=== PATIENT | male | born 1960 | race Caucasian/White ===

== ENCOUNTER 2019-01-25 13:01 | Observation (INO) | payer BC, SELFPAY ==
[2019-01-25] VITALS (7 sets, daily range): BP systolic 106–167; BP diastolic 64–90; PULSE 70–86; RESP 13–18; TEMP 36.4–36.7; O2SAT 94–98; BMI 27.4; BMI 27.8; BMI 27.9
--- NOTE | 2019-01-25 13:25 | EKG12_ITS ---
Test Reason : CP Blood Pressure : / mmHG Vent. Rate : 071 BPM Atrial Rate : 071 BPM P-R Int : 166 ms QRS Dur : 098 ms QT Int : 398 ms P-R-T Axes : 071 069 061 degrees QTc Int : 432 ms Normal sinus rhythm Normal ECG Confirmed by VIKY CANNON, KENNA ([id number]), editor map GAL ROGERS ([id number]) on 01/31/2019 1:09:40 PM Referred By: MARY ANN Confirmed By:MICAH SALMON MD
--- NOTE | 2019-01-25 13:25 | RAD_ITS ---
STUDY: X-RAY CHEST REASON FOR EXAM: Male, 58 years old. One week history of chest tightness. TECHNIQUE: Single AP portable view of the chest. COMPARISON: Comparison is made with prior study September 26, 2015. FINDINGS: EKG electrodes are seen. Hyperinflation. Scattered calcified granulomas. There is no demonstrated pleural abnormality. Normal size heart. Normal mediastinum and imelda. Normal visualized pulmonary arteries. There is atherosclerotic tortuosity of the aortic arch and descending thoracic aorta. There are diffuse degenerative changes of the visualized thoracic spine. Normal visualized ribs, clavicles, and shoulders. There is no demonstrated abnormality of the visualized soft tissue structures of the upper abdomen. RAD/Chest 1 View (Portable) IMPRESSION: Hyperinflation. No acute abnormality is seen. Electronically Signed: Lino Mcgee, at 14:12 EST , Service support ,
--- NOTE | 2019-01-25 13:27 | ED.DCSUM_ITS ---
History of Present Illness Chief Complaint: Chest Pain Informant: Patient, Significant Other Onset: Days Current Severity: Mild Maximum Severity: Moderate Narrative: Patient presents with intermittent chest tightness for the past 2 days. He states he will get a tight sensation around his mid chest. He was initially getting some numbness in his left arm also. Pain is not brought on by exertion. He does not feels if he is going to pass out. He does not have palpitations. He denies personal history of cardiac disease but does have significant family history. Patient states yesterday he was more fatigued than normal and slept most of the day. - Past Medical History (1) Hypertension Status: Chronic (2) High cholesterol Status: Acute (3) GERD (gastroesophageal reflux disease) Status: Acute (4) Anxiety Status: Acute Past Medical History - Allergies and Home Meds Allergies/Adverse Reactions: Allergies No Known Allergies Allergy (Verified 01/25/19 13:01) Primary Care Physician: Tarik Reyes [Other] Prior records reviewed: Yes Lives: Spouse/ Significant Other Smoking Status: Current every day smoker Review of Systems General: Denies: Chills, Fever Eyes: Denies: Visual changes - bilaterally ENT: Denies: Bilateral ear pain Cardiovascular: Reports: Chest pain. Denies: Palpitations Respiratory: Reports: Dyspnea. Denies: Cough Gastrointestinal: Denies: Abdominal pain, Nausea, Vomiting, Diarrhea Musculoskeletal: Denies: Swelling, Extremity Pain Skin: Denies: Rash Neurological: Reports: Weakness - Generalized weakness and fatigue Hematologic: Denies: Easy bruising Allergy: Denies: Uticaria Physical Exam Vital Signs/Narrative: Vital Signs Temp Pulse Resp BP Pulse Ox 01/25/19 13:02 97.5 F L 73 18 160/90 H 98 Inital Vital Signs reviewed: Yes General: Well nourished, Well developed Head: Normocephalic ENT: Moist mucous membranes Neck: Supple, Nontender Cardiovascular: Regular rate, Regular rhythm Respiratory: No distress, CTA bilaterally, Chest nontender Abdomen: Soft, Nontender Back: Nontender Extremities: Nontender, No edema Skin: Normal color, No rash Neurological: Alert, Oriented x3 Psychological: Normal affect Diagnostic/Tx/Re-eval Impressions Chest X-Ray 01/25/19 13:25 IMPRESSION: Hyperinflation. No acute abnormality is seen. Electronically Signed: Lino Mcgee, at 14:12 EST , Service support , 01/25/19 13:25 Chest 1 View (Portable) [RAD] Stat Laboratory Results 01/25/19 01/25/19 01/25/19 13:35 13:35 13:35 WBC 13.2 H RBC 5.57 Hgb 16.6 H Hct 49.7 MCV 89.2 MCH 29.8 MCHC 33.4 RDW Std Deviation 42.3 RDW Coeff of Quan 13.0 Plt Count 316 MPV 8.8 Immature Gran % (Auto) 0.400 Neut % (Auto) 64.6 Lymph % (Auto) 24.0 [place] % (Auto) 7.8 Eos % (Auto) 2.5 Baso % (Auto) 0.7 Absolute Neuts (auto) 8.5 H Absolute Lymphs (auto) 3.16 Nucleated RBC % 0 D-Dimer Quant (PE/DVT) 0.41 Sodium 135 L Potassium 3.6 Chloride 101 Carbon Dioxide 27.0 Anion Gap 7 BUN 13 Creatinine 0.82 Estim Creat Clear Calc 96.16 Est GFR (MDRD) Af Amer 124 Est GFR (MDRD) Non-Af 102 BUN/Creatinine Ratio 15.8 Glucose 92 Calcium 9.7 Troponin I < 0.015 TSH 0.51 - EKG Initial EKG Interpretation: Sinus Rhythm - Sinus at 71 with no acute ischemia. - Medical Decision Making Patient had already taken 2 baby aspirin prior to arrival and was given 2 additional baby aspirin here. On repeat evaluation is resting comfortably. Test results are discussed with patient and at bedside. He is agreed to observation overnight for cycling of cardiac enzymes and potential stress test. I will speak with the hospitalist. ED Disposition - Plan for ED Patient: Disposition: Acute Care Hospital [facility] Diagnosis: Chest pain Referrals: Tarik Reyes [Other]
[2019-01-25 13:43] LABS: Absolute Lymphocyte Count 3.16 X10^3/uL (0.83-4.51); Absolute Neutrophil Count 8.5 X10^3/uL (2.0-7.7); Basophil# 0.09 X10^3/uL; Basophil% 0.7 % (0-1); Eosinophil# 0.33 X10^3/uL; Eosinophils% 2.5 % (0-5); Hematocrit 49.7 % (40-54); Hemoglobin 16.6 g/dL (13.0-16.5); Lymphocyte # 3.16 X10^3/ul (4.0); Mean Corp Hgb Conc 33.4 g/dL (32-36); Mean Corpuscular Hgb 29.8 pg (27.0-32.0); Mean Corpuscular Volume 89.2 fL (80-94); Mean Platelet Vol. 8.8 fl (6.2-12.0); Monocyte# 1.03 X10^3/uL; Monocyte% 7.8 % (0-10); NRBC Flagged by Analyzer 0 % (0-5); Neutrophil # 8.52 X10^3/uL (2.7-7.7); Neutrophil % 64.6 % (47-70); Platelet Count 316 K/mm3 (150-450); RBC Distribution Width SD 42.3 fl (35.1-43.9); Red Blood Count 5.57 M/mm3 (4.6-6.2); White Blood Count 13.2 K/mm3 (4.4-11.0)
[2019-01-25 14:06] LABS: Anion Gap 7 (5-15); BUN 13 mg/dL (7-18); BUN/Creat Ratio 15.8 RATIO (10-20); Calcium,Total 9.7 mg/dL (8.5-10.1); Chloride 101 mmol/L (98-107); Creatinine, Serum 0.82 mg/dL (0.70-1.30); EST Glomerular Filtration Rate 102 mL/min (>60); Est Glom Filt Rate - Afr Amer 124 mL/min (>60); Estimated Creatinine Clearance 96.16 ml/min; Glucose 92 mg/dL (74-106); Potassium 3.6 mmol/L (3.5-5.1); Sodium Level 135 mmol/L (136-145); Thyroid Stim Hormone (TSH) 0.51 uIU/mL (0.358-3.74)
[2019-01-25 14:07] LABS: D-Dimer Quantitative (DVT/PE) 0.41 FEU/ug/m (0.27-0.49)
[2019-01-25] MEDS: Aspirin 81 MG TAB.CHEW 162 MG PO (14:07)
[2019-01-25] MEDS: 0.9% Normal Saline 1,000 ML 150 ML IV (14:10)
--- NOTE | 2019-01-25 15:17 | NURSING ---
PCU OBS ANDREA VALDEZ
--- NOTE | 2019-01-25 16:32 | EKG12_ITS ---
Test Reason : CP Blood Pressure : / mmHG Vent. Rate : 067 BPM Atrial Rate : 067 BPM P-R Int : 174 ms QRS Dur : 098 ms QT Int : 410 ms P-R-T Axes : 084 080 070 degrees QTc Int : 433 ms Sinus rhythm with occasional Premature ventricular complexes Possible Left atrial enlargement Borderline ECG When compared with ECG of 25-JAN-2019 13:05, MANUAL COMPARISON REQUIRED, DATA IS UNCONFIRMED Confirmed by VIKY CANNON, KENNA ([id number]), film and video editor GAL ROGERS ([id number]) on 01/31/2019 1:46:21 PM Referred By: Confirmed By:MICAH SALMON MD
--- NOTE | 2019-01-25 18:05 | PCM.HP.STD ---
Problem List (1) Chest pain Status: Acute Qualifiers: Chest pain type: precordial pain Qualified Code(s): R07.2 - Precordial pain History of Present Illness Date of Admission: 01/25/19 Chief Complaint: Precordial chest pain The patient is a 58 year old M who was seen in the emergency room at [facility] with a chief complaint of chest pain which he described as a tightness across his chest, radiating into his back, and causing left arm numbness at times over the past week intermittently. Patient also states that he was sweaty and got nauseated during one episode of the discomfort. Eyes anything bringing on the discomfort-he states it can happen at rest or during activity. Nothing in particular makes it go away, patient states that last for several minutes. Work-up in the emergency room included an EKG which showed normal sinus rhythm without evidence of ischemic changes, white blood cell count was elevated at 13.2, hemoglobin was 16.6. Patient's troponin was normal, patient's chest x-ray showed hyperinflation and no acute abnormality. Patient will be placed in observation status on PCU, cardiac enzymes will be cycled, if these remain negative, patient will undergo a resting nuclear stress test tomorrow-patient states he is unable to walk on a treadmill for more than a few minutes-patient is a heavy smoker and I do not believe he would be able to perform an exercise stress test. Past Medical History Past Medical History (Chronic Problems): Chronic Problems Hypertension (Chronic) High cholesterol (Chronic) GERD (gastroesophageal reflux disease) (Chronic) Allergies No Known Allergies Allergy (Verified 01/25/19 13:01) Home Medications: Ambulatory Orders Medication Instructions Recorded Lisinopril/Hydrochlorothiazide 1 each PO DAILY 09/26/15 [Zestoretic 20-25 mg Tablet] Omeprazole [Prilosec] 20 mg PO DAILY 09/26/15 Amlodipine [Norvasc] 5 mg PO DAILY 01/25/19 Aspirin E.C. [Ecotrin] 81 mg PO DAILY@0800 01/25/19 Lisinopril [Zestril] 20 mg PO QHS 01/25/19 Pravastatin Sodium 80 mg PO QHS 01/25/19 Surgical History: no surgical history Psychiatric History: No pertinent psych hx Lives: Spouse/ Significant Other Smoking Status: Current every day smoker Tobacco Use: Cigarettes Alcohol: Occasional - Daily alcohol usage Drugs: None - *Family History Maternal History Items: Heart Disease Paternal History Items: Heart Disease - At age 46 Sibling History Items: Heart Disease - Brother has coronary artery disease Review of Systems Constitutional: Denies: Anorexia, Chills, Fever, Night Sweats, Malaise, Weakness, Weight Change, Fatigue Eyes: Denies: Cataracts, Conjunctivae Inflammation, Double vision, Drainage HEENT: Denies: Difficulty Swallowing, Dysphasia, Ear Pain, Eye Pain, Hearing Changes, Nasal bleeding, Nasal Congestion, Post Nasal Drip Cardiovascular: Reports: Chest Pain, Chest Tightness. Denies: Claudication, Chest Pressure, Edema, Heaviness, Light Headedness, Orthopnea, Palpitations, Paroxysmal Noc. Dyspnea, Syncope Respiratory: Denies: Cough, Hemoptysis, Pleuritic Pain, Shortness of Breath, Shortness of breath at rest, Shortness of breath upon exertion, Sputum production Gastrointestinal: Reports: Nausea - At times with chest discomfort. Denies: Abdominal Pain, Constipation, Diarrhea, Hematemesis, Hematochezia, Melena, Vomiting Genitourinary: Denies: Dysuria, Frequency, Hematuria, Hesitancy, Nocturia, Retention, Urgency Musculoskeletal: Denies: Joint Pain, Joint stiffness, Joint swelling Skin: Denies: Dryness, Pruritis, Rash Neurological: Denies: Blurred vision, Double vision, Slurred speech, Difficulty swallowing, Focal weakness, Headaches, Incoordination, Numbness, Tingling Psychiatric: Denies: Anxiety, Depression, Homicidal Ideations, Suicidal Ideations Endocrine: Denies: Change in Body Habitus, Heat/ Cold Intolerance, Polydipsia, Polyuria Hematologic/ Lymphatic: Denies: Adenopathy, Anemia, Easy Bruising, Easy Bleeding, Petechiae, Purpura VTE Information - Inpt Only VTE Present on Admission: No VTE Mechan Device Prophylaxis: None VTE Pharm Prophylaxis ordered?: Yes Patient Problems: Active and Suspected Problems Chest pain (Acute) - Physical Exam Vitals/I&O's: Vital Signs Temp Pulse Resp BP Pulse Ox 97.9 F 71 16 167/86 H 98 01/25/19 16:05 01/25/19 16:10 01/25/19 16:05 01/25/19 16:05 01/25/19 16:05 Oxygen Delivery Method Room Air Weight: 83.5 kg Body Mass Index (BMI) 27.8 Intake and Output for Last 24 Hours 01/23/19 01/24/19 01/25/19 23:59 23:59 23:59 Intake Total 1350 / 1350 Balance 1350 / 1350 General: Alert, Oriented x3, Cooperative, No apparent distress, Well developed, Well nourished HEENT: Atraumatic, PERRLA, EOMI, Normocephalic Oral: Moist Mucosa Neck: Supple, No JVD, Negative Carotid Bruits, Trachea Midline, Thyroid Normal Size and Texture Lungs: Clear to auscultation, Normal air movement, No rhonchi, No wheeze, No rales Cardiovascular: Regular rate, Regular Rhythm, Normal S1, Normal S2, No murmurs Abdomen: Bowel Sounds Present, Soft, Non Tender, Non-Distended Extremities: No clubbing, No cyanosis, No edema, Capillary Refill Less than 3 Seconds Skin: No rashes, No breakdown Musculoskeletal: No Tenderness to Palpation of Joints or Extremities, No Muscle Wasting Neurological: Cranial nerves II-XII grossly intact, Neuro grossly intact, Sensory exam intact to light touch and pain, Coordination normal Psych/Mental Status: Normal Affect, Appropriate, Alert and oriented to time, place, person, mood and affect Laboratory Results 01/25/19 13:35: WBC 13.2 H, RBC 5.57, Hgb 16.6 H, Hct 49.7, MCV 89.2, MCH 29.8, MCHC 33.4, RDW Std Deviation 42.3, RDW Coeff of Quan 13.0, Plt Count 316, MPV 8.8, Immature Gran % (Auto) 0.400, Neut % (Auto) 64.6, Lymph % (Auto) 24.0, [place] % (Auto) 7.8, Eos % (Auto) 2.5, Baso % (Auto) 0.7, Absolute Neuts (auto) 8.5 H, Absolute Lymphs (auto) 3.16, Nucleated RBC % 0 01/25/19 13:35: Sodium 135 L, Potassium 3.6, Chloride 101, Carbon Dioxide 27.0, Anion Gap 7, BUN 13, Creatinine 0.82, Estim Creat Clear Calc 96.16, Est GFR (MDRD) Af Amer 124, Est GFR (MDRD) Non-Af 102, BUN/Creatinine Ratio 15.8, Glucose 92, Calcium 9.7, Troponin I < 0.015, TSH 0.51 01/25/19 13:35: D-Dimer Quant (PE/DVT) 0.41 01/25/19 17:50: Troponin I Pending Current Medications Amlodipine Besylate (Norvasc) 5 mg PO DAILY [facility] Aspirin (Ecotrin) 81 mg PO DAILY@0800 [facility] Heparin Sodium (Porcine) (Heparin Na) 5,000 unit SC Q12 [facility] Hydrochlorothiazide (Hctz) 25 mg PO DAILY [facility] Lisinopril (Zestril) 20 mg PO QHS [facility] Lisinopril (Zestril) 20 mg PO DAILY [facility] Pantoprazole Sodium (Protonix) 20 mg PO DAILY [facility] Pravastatin Sodium (Pravachol) 80 mg PO QHS [facility] Sodium Chloride () 10 - 40 ml IV UD PRN PRN Reason: SALINE FLUSH Assessment/Plan All Active Problems Chest pain (Acute) #1 chest pain-described as tightness-etiology unclear, patient is at high risk for coronary artery disease-he is a heavy smoker and has hypercholesterolemia, strong family history of coronary artery disease, and has a history of hypertension. Patient will be placed in observation status on PCU, cardiac enzymes will be cycled, if his cardiac enzymes remain normal he will undergo a resting nuclear pharmacologic stress test tomorrow #2 hypertension-patient will remain on his present medications #3 GERD-patient will remain on a PPI #4 hyperlipidemia Code Visit OBSV E&M: 96984 Initial observation care L3
[2019-01-25] MEDS: 0.9% Saline Lock 10 ML Syringe IV (21:19)
[2019-01-25] MEDS: Pravastatin 80 MG Tablet PO (21:19)
[2019-01-26] VITALS (7 sets, daily range): BP systolic 122–141; BP diastolic 80–85; PULSE 68–78; RESP 16–18; TEMP 36.4–36.7; O2SAT 96–98
--- NOTE | 2019-01-26 05:55 | EKG12_ITS ---
Test Reason : AM EKG Blood Pressure : / mmHG Vent. Rate : 079 BPM Atrial Rate : 079 BPM P-R Int : 158 ms QRS Dur : 098 ms QT Int : 410 ms P-R-T Axes : 079 075 067 degrees QTc Int : 470 ms Normal sinus rhythm Normal ECG When compared with ECG of 25-JAN-2019 16:17, MANUAL COMPARISON REQUIRED, DATA IS UNCONFIRMED Confirmed by VIKY CANNON, KENNA ([id number]), video effects editor GAL ROGERS ([id number]) on 01/31/2019 1:45:45 PM Referred By: ANDREA Confirmed By:MICAH SALMON MD
[2019-01-26] MEDS: Aspirin E.C. 81 MG Tablet PO (06:12)
[2019-01-26] MEDS: hydroCHLOROthiazide 25 MG Tablet PO (11:24)
[2019-01-26] MEDS: amLODIPine 5 MG Tablet PO (11:24)
[2019-01-26] MEDS: Pantoprazole Sodium 20 MG Tablet PO (11:24)
[2019-01-26] MEDS: Lisinopril 20 MG Tablet PO (11:25)
--- NOTE | 2019-01-26 12:09 | STRESSREP ---
Stress Test Report Date: 01/26/2019 Procedure: Pharmacologic stress nuclear imaging study Indications: Chest pain Consent: Per the patient Procedure: The patient underwent pharmacologic (Regadenoson) evaluation with a peak heart rate of 104 beats per minute (63 %predicted maximal heart rate) and a peak blood pressure of 160/78 mmHg. The baseline ECG demonstrated normal sinus rhythm, possible old anteroseptal ID. EKG during lexiscan infusion revealed no significant ischemic changes. EKG post infusion revealed no significant ischemic changes [There were no significant cardiac dysrhythmias pretest, during pharmacologic infusion, or recovery]. [There was no complaint of chest discomfort during pharmacologic infusion or recovery]. The examination was discontinued secondary to completion of protocol. Impression: 1. Lexiscan stress test test is negative for Lexiscan infusion induced EKG changes of ischemia. 2. Lexiscan stress test test is negative for Lexiscan infusion induced chest pain. 3. Results of the nuclear portion of the test is as below Myocardial perfusion imaging study: Technique: The patient was injected with 12 millicuries of technetium 99m Cardiolite and subsequently rest SPECT Cardiolite nuclear imaging was obtained in the horizontal long, vertical long, and short axis views. The patient underwent pharmacologic (Regadenoson) evaluation. Please see above for details. The patient was injected with 36 millicuries of technetium 99m Cardiolite and subsequently stress SPECT Cardiolite nuclear imaging was obtained in the horizontal long, vertical long, and short axis views. A gated Cardiolite study at peak stress was obtained. Interpretation: Rest and stress SPECT Cardiolite nuclear imaging status post realignment, normalization, and attenuation correction demonstrate mildly decreased radioisotope uptake in the inferior wall prior to attenuation correction. After attenuation correction there is normal myocardial radioisotope uptake. These findings are suggestive of diaphragmatic attenuation artifact. There is no evidence of significant ischemia or infarction. Gated images reveal no significant regional wall motion abnormalities. The reported LVEF is 60 %. Impression: 1. There is no evidence of significant ischemia or infarction. 2. Estimated ejection fraction is 60%. This note was generated with [employer] software. It may contain incorrect words, spelling, and punctuation that were not noted in checking the note before signing.
--- NOTE | 2019-01-26 12:22 | DCINST_ITS ---
- Discharge Diagnoses Current Active Problems: Current Active and Chronic Problems Hypertension (Chronic) High cholesterol (Chronic) GERD (gastroesophageal reflux disease) (Chronic) Chest pain (Acute) Reason(s) for Visit for Discharge Instructions: Chest pain You will use the following diet at home:: Cardiac Your food should be the consistency of: Regular Your liquids should be the consistency of: Regular/Thin Discharge Activity: Return to Normal Activity Additional Instructions: Continue to take all your medications. Follow up with your primary care doctor within 2 weeks. Allergies/Adverse Reactions: Allergies No Known Allergies Allergy (Verified 01/25/19 13:01) Medications to take at Discharge Lisinopril/Hydrochlorothiazide [Zestoretic 20-25 mg Tablet] 1 each PO DAILY 09/26/15 Omeprazole [Prilosec] 20 mg PO DAILY 09/26/15 Amlodipine [Norvasc] 5 mg PO DAILY 01/25/19 Aspirin E.C. [Ecotrin] 81 mg PO DAILY@0800 01/25/19 Lisinopril [Zestril] 20 mg PO QHS 01/25/19 Pravastatin Sodium 80 mg PO QHS 01/25/19 Primary Care Physician: Tarik Reyes [Other] Please follow up with your Primary Care Physician in: within 1-2 weeks Test Results: Test results from this visit will be discussed in further detail at your follow- up appointment, if applicable. Proposed Discharge Date: 01/26/19
--- NOTE | 2019-01-26 12:23 | DS.PCM_ITS ---
Discharge Date and Diagnosis Date of Admission: 01/25/19 Date of Discharge: 01/27/19 - Primary Discharge Diagnosis Active and Suspected Problems Chest pain (Acute) - Secondary Discharge Diagnosis Chronic Problems Hypertension (Chronic) High cholesterol (Chronic) GERD (gastroesophageal reflux disease) (Chronic) Hospital Course and Treatment Imaging Results: 01/26/19 05:55 Nuclear Stress Test - Chemical [NM] AM (NON MEDS) None Operations: None Procedures: Stress test Summary of Care Provided: The patient is a 58 year old M with past medical history of hypertension, hyperlipidemia, GERD who was admitted with chest pain described as chest tightness radiating across his chest and back associated with left arm numbness ongoing for about 1 week. This is associated with diaphoresis and nausea. Patient is admitting blood work was remarkable for white cell count of 13.2, hemoglobin 16.6. EKG shows normal sinus rhythm with no acute ST changes. Chest x-ray showed hyperinflation, no acute abnormality. He was admitted to telemetry bed. His troponins were cycled and were negative. Patient underwent nuclear stress test which was unremarkable. I had a long discussion with patient about quitting smoking and following up to be evaluated for COPD. I offered medications and resources to assist with smoking cessation, but patient refused. Subjective: On the day of discharge, patient was seen and examined. Denied any new complaints. No acute events overnight. Objective: Physical exam: General: Alert, Oriented x3, Cooperative, No apparent distress, Well developed, Well nourished HEENT: Atraumatic, PERRLA, EOMI, Normocephalic Oral: Moist Mucosa Neck: Supple, No JVD, Negative Carotid Bruits, Trachea Midline, Thyroid Normal Size and Texture Lungs: Clear to auscultation, Normal air movement, No rhonchi, No wheeze, No rales Cardiovascular: Regular rate, Regular Rhythm, Normal S1, Normal S2, No murmurs Abdomen: Bowel Sounds Present, Soft, Non Tender, Non-Distended Extremities: No clubbing, No cyanosis, No edema, Capillary Refill Less than 3 Seconds Skin: No rashes, No breakdown Musculoskeletal: No Tenderness to Palpation of Joints or Extremities, No Muscle Wasting Neurological: Cranial nerves II-XII grossly intact, Neuro grossly intact, Sensory exam intact to light touch and pain, Coordination normal Psych/Mental Status: Normal Affect, Appropriate, Alert and oriented to time, place, person, mood and affect - Physical Exam Vitals/I&O's: Vital Signs Temp Pulse Resp BP Pulse Ox 97.5 F L 78 16 122/80 H 98 01/26/19 11:12 01/26/19 11:36 01/26/19 11:12 01/26/19 11:12 01/26/19 11:12 Oxygen Delivery Method Room Air Weight: 83.5 kg Body Mass Index (BMI) 27.8 Intake and Output for Last 24 Hours 01/24/19 01/25/19 01/26/19 23:59 23:59 23:59 Intake Total 1590 / 1590 45 / 45 Balance 1590 / 1590 45 Laboratory Results 01/25/19 13:35: WBC 13.2 H, RBC 5.57, Hgb 16.6 H, Hct 49.7, MCV 89.2, MCH 29.8, MCHC 33.4, RDW Std Deviation 42.3, RDW Coeff of Quan 13.0, Plt Count 316, MPV 8.8, Immature Gran % (Auto) 0.400, Neut % (Auto) 64.6, Lymph % (Auto) 24.0, [place] % (Auto) 7.8, Eos % (Auto) 2.5, Baso % (Auto) 0.7, Absolute Neuts (auto) 8.5 H, Absolute Lymphs (auto) 3.16, Nucleated RBC % 0 01/25/19 13:35: Sodium 135 L, Potassium 3.6, Chloride 101, Carbon Dioxide 27.0, Anion Gap 7, BUN 13, Creatinine 0.82, Estim Creat Clear Calc 96.16, Est GFR (MDRD) Af Amer 124, Est GFR (MDRD) Non-Af 102, BUN/Creatinine Ratio 15.8, Glucose 92, Calcium 9.7, Troponin I < 0.015, TSH 0.51 01/25/19 13:35: D-Dimer Quant (PE/DVT) 0.41 01/25/19 17:50: Troponin I < 0.015 01/25/19 20:50: Troponin I < 0.015 Current Medications Amlodipine Besylate (Norvasc) 5 mg PO DAILY [facility] Last Admin: 01/26/19 11:24 Dose: 5 mg Documented by: Aspirin (Ecotrin) 81 mg PO DAILY@0800 [facility] Last Admin: 01/26/19 06:12 Dose: 81 mg Documented by: Heparin Sodium (Porcine) (Heparin Na) 5,000 unit SC Q12 [facility] Last Admin: 01/26/19 11:23 Dose: Not Given Documented by: Hydrochlorothiazide (Hctz) 25 mg PO DAILY [facility] Last Admin: 01/26/19 11:24 Dose: 25 mg Documented by: Lisinopril (Zestril) 20 mg PO QHS [facility] Last Admin: 01/25/19 21:21 Dose: Not Given Documented by: Lisinopril (Zestril) 20 mg PO DAILY [facility] Last Admin: 01/26/19 11:25 Dose: 20 mg Documented by: Pantoprazole Sodium (Protonix) 20 mg PO DAILY [facility] Last Admin: 01/26/19 11:24 Dose: 20 mg Documented by: Pravastatin Sodium (Pravachol) 80 mg PO QHS [facility] Last Admin: 01/25/19 21:19 Dose: 80 mg Documented by: Sodium Chloride () 10 - 40 ml IV UD PRN PRN Reason: SALINE FLUSH Last Admin: 01/25/19 21:19 Dose: 10 ml Documented by: Discharge Diet: Low fat/ Low Cholesterol, 2000 mg Sodium Diet Discharge Activity: Return to Normal Activity Home Medications: Medications to take at Discharge Lisinopril/Hydrochlorothiazide [Zestoretic 20-25 mg Tablet] 1 each PO DAILY 09/26/15 Omeprazole [Prilosec] 20 mg PO DAILY 09/26/15 Amlodipine [Norvasc] 5 mg PO DAILY 01/25/19 Aspirin E.C. [Ecotrin] 81 mg PO DAILY@0800 01/25/19 Lisinopril [Zestril] 20 mg PO QHS 01/25/19 Pravastatin Sodium 80 mg PO QHS 01/25/19 Primary Care Physician: Tarik Reyes [Other] Please follow up with your Primary Care Physician in: within 1-2 weeks Disposition: Home Minutes spent on discharge:: 40 Patient Condition:: Stable Medical Necessity - Tobacco Use Smoking Status: Current every day smoker Tobacco Use: Cigarettes Meaningful Use Info Meaningful Use Diagnoses (Choose all that apply): None applicable Code Visit OBSV E&M: 97516 Observation care discharge
--- NOTE | 2019-01-26 13:00 | PHA.DC.MR ---
Pharmacy Service has performed discharge medication reconciliation for this patient. Home Medications Lisinopril/Hydrochlorothiazide [Zestoretic 20-25 mg Tablet] 1 each PO DAILY 09/26/15 Omeprazole [Prilosec] 20 mg PO DAILY 09/26/15 Amlodipine [Norvasc] 5 mg PO DAILY 01/25/19 Aspirin E.C. [Ecotrin] 81 mg PO DAILY@0800 01/25/19 Lisinopril [Zestril] 20 mg PO QHS 01/25/19 Pravastatin Sodium 80 mg PO QHS 01/25/19 The patient's discharge medication list was reviewed for discrepancies and discrepancies were resolved.
--- NOTE | 2019-01-26 13:28 | NURSING ---
Discharge teaching completed. Patient and deny questions when asked. Patient refused wheelchair at discharge.
== END 2019-01-26 12:19 | disposition home or self-care (01) ==
LOC: ED 15:10 → PCU 16:32
PROVIDERS: Admitting Provider Internal Medicine; Emergency Provider Emergency Medicine; Family Provider Family Medicine; Visit Provider Internal Medicine
DX: R07.89 Other chest pain (principal); I10 Essential (primary) hypertension; K21.9 Gastro-esophageal reflux disease without esophagitis; R20.0 Anesthesia of skin; E78.5 Hyperlipidemia, unspecified; F41.9 Anxiety disorder, unspecified; F17.210 Nicotine dependence, cigarettes, uncomplicated; Z79.899 Other long term (current) drug therapy; Z79.82 Long term (current) use of aspirin
CPT/HCPCS: 36415; 71045; 78452; 80048; 84443; 84484; 85025; 85379; 93005; 93017; 96360; 96361; 99218; 99285; 99406; A9500; J7030; A4216; G0378; J2785

== ENCOUNTER 2019-12-05 17:16 | Emergency (ER) | payer BC, SELFPAY ==
[2019-01-25 16:06] VITALS: BMI 27.8
[2019-12-05 17:17] VITALS: BP 169/79; PULSE 83; RESP 16; TEMP 36.2; O2SAT 95; BMI 26.2
--- NOTE | 2019-12-05 17:29 | EKG12_ITS ---
Test Reason : SOB Blood Pressure : / mmHG Vent. Rate : 075 BPM Atrial Rate : 075 BPM P-R Int : 170 ms QRS Dur : 092 ms QT Int : 372 ms P-R-T Axes : 080 080 072 degrees QTc Int : 415 ms Normal sinus rhythm Normal ECG Confirmed by TOÑA CANNON, GERALD ([id number]), scientific editor BRIGITTE DUPREE ([id number]) on 12/08/2019 1:04:06 PM Referred By: ANTON Confirmed By:GERALD DING MD
--- NOTE | 2019-12-05 17:43 | ED.VISSUMM ---
- ER Visit Summary Date of Service: 12/05/19 Chief Complaint: [Shortness of breath] History of Present Illness: The patient is a 59 M [presents to the emergency department over a weeks worth of increasing shortness of breath. Patient is a smoker but has never been diagnosed with COPD or emphysema. He does have a cough and he brings up some sputum every morning he states. He denies any fevers. He denies any exposures to COVID-19. Patient drives truck. He denies any chest pain although at times will have some tightness across his chest. He denies nausea or vomiting. Patient does have history of hypertension, high cholesterol, anxiety, and GERD. He does describe exertional dyspnea.] Physical Examination: [HEENT-PERRLA, EOMI. Cranial nerves II through XII grossly intact. TMs clear. Mucous membranes moist. No adenopathy. Cardiovascular-regular rate and rhythm without murmur or ectopy Lungs-diminished breath sounds bilaterally with expiratory wheezes noted. No significant tachypnea. No accessory muscle use or retractions. Abdomen-normoactive bowel sounds, soft, nontender, no rebound or rigidity, no peritoneal signs. Extremities-intact ?4, normal range of motion, normal pulses, atraumatic] Test Results: [EKG obtained arrival shows sinus rhythm with a ventricular rate of 75 bpm with no acute ST segment changes. CBC with differential showed a white count 12.4, hemoglobin 16.9, hematocrit 50, platelets 303. Chemistries unremarkable. Troponin was less than 0.015. D-dimer was less than 0.27. Chest x-ray showed COPD otherwise nothing acute.] COVID-19 test ordered and pending due to the fact that it is a send out. Emergency Department Course and Treatment: [Patient was given albuterol MDI 6 puffs. Patient was started on Solu-Medrol 125 mg IV. Patient was ambulated with pulse ox and he maintained his O2 saturation above 90%. He did feel improved after treatment.] Treatment Plan: [Even that patient is not in any acute respiratory distress I feel he can be treated as an outpatient. Patient will be started on albuterol as well as prednisone and doxycycline. Patient advised to return if increasing shortness of breath or condition should worsen anyway.] Disposition: [Discharged home in stable condition] Impression: [COPD exacerbation Dyspnea] This note was generated with Dragon dictation software. It may contain incorrect words, spelling, and punctuation that were not noted in review of the chart prior to signing ED Disposition - Plan for ED Patient: Referrals: Robinson Reyes DO [Primary Care Provider] -
[2019-12-05] MEDS: MethylPREDNISolone 125 MG/2 ML Vial IV (18:09)
[2019-12-05] MEDS: 0.9% Normal Saline 1,000 ML 150 ML IV (18:09)
[2019-12-05 18:12] LABS: Absolute Neutrophil Count 7.3 X10^3/uL (2.0-7.7); Basophil# 0.08 X10^3/uL; Basophil% 0.6 % (0-1); Eosinophil# 0.96 X10^3/uL; Eosinophils% 7.7 % (0-5); Hematocrit 49.5 % (40-54); Hemoglobin 16.9 g/dL (13.0-16.5); Lymphocyte % 20.1 % (19-41); Mean Corp Hgb Conc 34.1 g/dL (32-36); Mean Corpuscular Hgb 29.9 pg (27.0-32.0); Mean Corpuscular Volume 87.6 fL (80-94); Mean Platelet Vol. 8.8 fl (6.2-12.0); Monocyte# 1.55 X10^3/uL; Monocyte% 12.5 % (0-10); NRBC Flagged by Analyzer 0 % (0-5); Neutrophil # 7.29 X10^3/uL (2.7-7.7); Neutrophil % 58.7 % (47-70); POSITIVE DIFFERENTIAL YES; Platelet Count 303 K/mm3 (150-450); RBC Distribution Width CV 12.6 % (11.6-14.6); RBC Distribution Width SD 40.5 fl (35.1-43.9); Red Blood Count 5.65 M/mm3 (4.6-6.2); White Blood Count 12.4 K/mm3 (4.4-11.0)
--- NOTE | 2019-12-05 18:18 | RAD_ITS ---
STUDY: X-RAY CHEST REASON FOR EXAM: Male, 59 years old. SOB TECHNIQUE: Single AP portable view of the chest. COMPARISON: 01/25/2019. FINDINGS: There is hyperinflation of the lungs consistent with chronic obstructive lung disease (COPD). No infiltrates. No effusions. There is no demonstrated pleural abnormality. Normal size heart. Normal mediastinum and imelda. Normal visualized pulmonary arteries. Normal visualized aortic arch and descending thoracic aorta. Normal visualized thoracic spine. Normal visualized ribs, clavicles, and shoulders. There is no demonstrated abnormality of the visualized soft tissue structures of the upper abdomen. RAD/Chest 1 View (Portable) IMPRESSION: There are findings consistent with COPD. There is no evidence of acute chest disease. Electronically Signed: Damien Crabtree MD at 19:11 EDT , Service support ,
[2019-12-05 18:30] LABS: Anion Gap 9 (5-15); BUN 13 mg/dL (7-18); BUN/Creat Ratio 13.4 RATIO (10-20); Calcium,Total 9.6 mg/dL (8.5-10.1); Chloride 103 mmol/L (98-107); Creatinine, Serum 0.97 mg/dL (0.70-1.30); EST Glomerular Filtration Rate 85 mL/min (>60); Est Glom Filt Rate - Afr Amer 102 mL/min (>60); Estimated Creatinine Clearance 80.31 ml/min; Glucose 95 mg/dL (74-106); Potassium 3.8 mmol/L (3.5-5.1); Sodium Level 138 mmol/L (136-145)
[2019-12-05 18:32] LABS: Differential Indicated SCAN CRITERIA MET
[2019-12-05 18:36] LABS: D-Dimer Quantitative (DVT/PE) < 0.27 FEU/ug/m (0.27-0.49)
[2019-12-05 19:12] LABS: Anisocytosis RARE; Platelet Estimate ADEQUATE (ADEQ); Red Cell Morphology NORM C+C NORMAL (NORM C&C)
--- NOTE | 2019-12-05 19:33 | ED.DEP ---
ED Disposition - Plan for ED Patient: Instructions: ED COPD Flare Prescriptions: Prednisone [Deltasone] 20 mg PO BID #10 tab Transmission Status: Pending to [id number] Doxycycline 100 mg PO BID #20 cap Transmission Status: Pending to [facility] Referrals: Robinson Reyes DO [Primary Care Provider] - 3-5 Days
[2019-12-05 19:42] VITALS: O2SAT 93
[2019-12-05] MEDS: Doxycycline 100 MG CAPSULE PO (20:05)
[2019-12-05 20:13] VITALS: O2SAT 94
[2019-12-06 12:14] LABS: Pathologist Review Reviewed
== END 2019-12-05 20:15 | disposition home or self-care (01) ==
LOC: ED 18:16
PROVIDERS: Emergency Provider Emergency Medicine; PCP Family Medicine
DX: J44.1 Chronic obstructive pulmonary disease with (acute) exacerbation (principal); I10 Essential (primary) hypertension; E78.00 Pure hypercholesterolemia, unspecified; K21.9 Gastro-esophageal reflux disease without esophagitis; F41.9 Anxiety disorder, unspecified; F17.200 Nicotine dependence, unspecified, uncomplicated
CPT/HCPCS: 71045; 80048; 84484; 85025; 85379; 87635; 93005; 94640; 96361; 96374; 99283; J7030; A4216; U0003